=== PATIENT | female | born 1990 | race Caucasian/White ===

== ENCOUNTER → 2017-09-16 | Outpatient (CLI) | payer SELFPAY ==
--- NOTE | 2017-09-16 18:35 | Diagnostic Imaging Report ---
INDICATION: Left lower extremity pain. COMPARISON: None. TECHNIQUE: Duplex, pérez-scale and color-flow imaging of the left lower extremity venous system was performed. FINDINGS: The common femoral vein, superficial femoral vein, profunda femoris, and popliteal veins are normal. These vessels show normal compressibility, color flow, and Doppler augmentation. The deep calf veins, although not very well seen, demonstrate no distinct intraluminal thrombus. IMPRESSION: Negative venous Doppler of the left lower extremity. Dictated by: Dictated on workstation # [id number]
== END ==
LOC: RAD 16:20
PROVIDERS: ATTEND Physician Assistant
DX: M79.662 Pain in left lower leg (principal)